=== PATIENT | female | born 1950 | race Caucasian/White ===

== ENCOUNTER → 2019-11-19 12:44 | Outpatient (BNVA) | payer MEDICARE, OTHER, SELFPAY | PROVIDERS: Family Provider Nurse Practitioner Family; PCP Family Medicine; Visit Provider Nurse Practitioner | DX: R55 Syncope and collapse (principal) | CPT/HCPCS: 99204; 99999 ==

== ENCOUNTER 2019-12-02 14:54 | Outpatient (CLI) | payer MEDICARE, OTHER, SELFPAY ==
--- NOTE | 2019-12-02 15:15 | MR_ITS ---
WS: [id number] MRI BRAIN WITHOUT CONTRAST HISTORY: I63.9 Cerebral infarction, unspecified COMPARISON: None available. TECHNIQUE: Diffusion imaging, multiplanar T1, T2 and FLAIR imaging obtained. No evidence for acute infarct or hemorrhage. Tuttle-white matter differentiation is normal. Remote infarct with volume loss involving the RIGHT occipital lobe. There is adjacent gliosis around the periphery of the infarct with mild ex vacuole dilatation of the occipital horn of the lateral bita tricle. There are a few other scattered foci of increased signal from chronic ischemic disease. Mild atrophy. Ventricles and extra-axial spaces are negative for acute interval change. No inferior displacement of cerebellar tonsils. The sella turcica and pituitary gland are unremarkabl e. Posterior fossa is also unremarkable. Dural venous sinuses and [place] of [place] demonstrate no abnormality on this unenhanced studies. Paranasal sinuses: Clear. Mastoid air cells: Normal. Calvarium and scalp: Intact. MR/MR head wo con* [id number] IMPRESSION: 1. Remote infarct RIGHT occipital lobe. 2. No acute infarct. 3. Mild atrophy and otherwise mild chronic microvascular ischemic disease.
== END 2019-12-02 14:55 | disposition home or self-care (01) ==
LOC: RADSHAW 14:58
PROVIDERS: PCP Family Medicine; Visit Provider Nurse Practitioner
DX: I63.9 Cerebral infarction, unspecified (principal); G31.9 Degenerative disease of nervous system, unspecified
CPT/HCPCS: 70551

== ENCOUNTER → 2019-12-07 10:02 | Outpatient (BNVA) | payer MEDICARE, OTHER, SELFPAY | PROVIDERS: PCP Family Medicine; Visit Provider Specialist | DX: R56.9 Unspecified convulsions (principal) | CPT/HCPCS: 95816 ==